=== PATIENT | male | born 1955 | race African-American/Black ===

== ENCOUNTER 2022-07-29 20:14 | Emergency (ER) | payer MEDICAID ==
[~2022-07-29] VITALS: Ht 177.8 cm; Wt 94.9 kg
[~2022-07-29 20:14] MED LIST: FLUT1DIS IH
[2022-07-29 20:32] VITALS: BP 179/104
== END 2022-07-30 00:23 | disposition left against medical advice (07) ==
LOC: ER 20:14
DX: Z53.21 Procedure and treatment not carried out due to patient leaving prior to being seen by health care provider (principal)

== ENCOUNTER 2024-03-04 17:34 | Emergency (ER) | payer BC, MEDICAID ==
[~2024-03-04] VITALS: Ht 172.7 cm; Wt 106.0 kg
[~2024-03-04 17:34] MED LIST changes: +AMLO5TAB88 PO; +ASPI-1160 PO; +ATOR20TA PO; +HYDR100T26 PO; +ISOS30TA91 PO; +METO25TA6 PO
[2024-03-04 17:36] VITALS: BP 143/63
[2024-03-04] MEDS: DEXAMETHASONE 4MG/ML 1ML VIAL IM ONE (18:13)
[2024-03-04] MEDS: IPRATROPIUM/ALBUTEROL 0.5-3(2.5)MG/3ML NEB HHN ONE (18:21)
[2024-03-04 18:22] VITALS: PULSE 74; RESP 20; O2SAT 94
[2024-03-04] MEDS: ALBUTEROL (0.083%) 2.5MG/3ML NEB HHN ONE (18:22)
[2024-03-04 18:58] LABS: BASOPHILS % 0.7 % (0.0-2.0); EOSINOPHILS % 6.4 % (0.0-5.0); HEMATOCRIT. 34.1 % (42.0-52.0); HEMOGLOBIN. 11.2 g/dL (14.0-18.0); LYMPHOCYTES % 31.3 % (20.0-50.0); MEAN CORPUSCULAR HEMOGLOBIN 32.4 pg (28.0-32.0); MEAN CORPUSCULAR HGB CONC 32.9 g/dL (31.0-37.0); MEAN CORPUSCULAR VOLUME 98.4 fL (80.0-94.0); MEAN PLATELET VOLUME 8.6 fl (7.4-10.4); MONOCYTES % 7.7 % (2.0-8.0); NEUTROPHILS % 53.9 % (40.0-76.0); PLATELET 159 x1000/uL (130-400); RED BLOOD CELL COUNT 3.47 mill/uL (4.7-6.1); RED CELL DISTRIBUTION WIDTH 13.2 % (11.6-14.6); WHITE BLOOD COUNT 4.3 x1000/uL (4.5-11.0)
[2024-03-04 19:06] LABS: CHLORIDE 108 mEq/L (98-107); POTASSIUM 3.7 mEq/L (3.5-5.1); SODIUM 141 mEq/L (136-145)
[2024-03-04 19:07] LABS: CALCIUM 9.2 mg/dL (8.7-10.4); CARBON DIOXIDE 27 mEq/L (21-32)
[2024-03-04 19:12] LABS: CREATININE 0.9 mg/dL (0.6-1.3); GLUCOSE 84 mg/dL (70-105); UREA NITROGEN BLOOD 9 mg/dL (9-23)
[2024-03-04 19:15] LABS: TROPONIN I HIGH SENSITIVITY 72 ng/L (3.0-53)
[2024-03-04] MEDS ORDERED: FLUT1DIS3 INH (19:38)
[2024-03-04] MEDS ORDERED: ALBU6.7H15 INH (19:38)
[2024-03-04] MEDS ORDERED: P50 MT (19:40)
[2024-03-04 20:07] VITALS: PULSE 76; RESP 20; TEMP 98.3
== END 2024-03-04 20:08 | disposition home or self-care (01) ==
LOC: ER 17:34
DX: J45.901 Unspecified asthma with (acute) exacerbation (principal); I10 Essential (primary) hypertension; Z79.899 Other long term (current) drug therapy
CPT/HCPCS: 99285; 71045; 80048; 85025; 84484; 36415; 94640; 93005; 96372; J1100

== ENCOUNTER 2024-05-03 08:07 | Emergency (ER) | payer BC, MEDICAID ==
[~2024-05-03] VITALS: Ht 177.8 cm; Wt 93.0 kg
[~2024-05-03 08:07] MED LIST changes: +ALBU6.7H15 INH; +FLUT1DIS3 INH; +HYDR100T11 PO; -HYDR100T26 PO; +P50 MT
[2024-05-03 08:19] VITALS: TEMP 98.3
[2024-05-03 09:04] VITALS: PULSE 80; RESP 21; O2SAT 94
[2024-05-03] MEDS: IPRATROPIUM BROMIDE (0.02%) 0.5MG/2.5ML NEB HHN STA (09:04)
[2024-05-03] MEDS: ALBUTEROL (0.083%) 2.5MG/3ML NEB HHN SCH (09:04)
[2024-05-03] MEDS ORDERED: DEXAMETHASONE 1MG TABLET PO ONE (11:15)
[2024-05-03 12:01] VITALS: BP 119/69; PULSE 87; RESP 18; O2SAT 93
[2024-05-03] MEDS: DEXAMETHASONE 10 MG/ML VIAL PO SCH (12:01)
== END 2024-05-03 11:13 | disposition home or self-care (01) ==
LOC: ER 08:30
DX: J45.901 Unspecified asthma with (acute) exacerbation (principal); I10 Essential (primary) hypertension; Z88.0 Allergy status to penicillin; Z79.899 Other long term (current) drug therapy; Z98.890 Other specified postprocedural states
CPT/HCPCS: 99291; 71045; 94640; J1100; J8540

== ENCOUNTER 2024-05-15 09:37 | Emergency (ER) | payer BC, MEDICAID ==
[~2024-05-15] VITALS: Ht 177.8 cm; Wt 93.0 kg
[2024-05-15 09:51] VITALS: O2SAT 97
[2024-05-15 10:04] VITALS: BP 117/78; TEMP 98.6; O2SAT 96
[2024-05-15] MEDS ORDERED: PREDNISONE 20MG TABLET PO STA (10:12)
[2024-05-15 10:39] VITALS: PULSE 96; RESP 18
[2024-05-15] MEDS: ALBUTEROL (0.083%) 2.5MG/3ML NEB HHN STA (10:39)
[2024-05-15] MEDS: IPRATROPIUM BROMIDE (0.02%) 0.5MG/2.5ML NEB HHN STA (10:39)
[2024-05-15] MEDS ORDERED: P20 MT (11:41)
[2024-05-15] MEDS ORDERED: PREDNISONE 20MG TABLET PO NR (12:00)
== END 2024-05-15 12:09 | disposition home or self-care (01) ==
LOC: ER 09:37
DX: J45.901 Unspecified asthma with (acute) exacerbation (principal); I10 Essential (primary) hypertension; F19.90 Other psychoactive substance use, unspecified, uncomplicated; Z88.0 Allergy status to penicillin; Z79.899 Other long term (current) drug therapy
CPT/HCPCS: 99283; 94640; J7512

== ENCOUNTER 2024-05-31 09:17 | Emergency (ER) | payer BC, MEDICAID ==
[~2024-05-31] VITALS: Ht 177.8 cm; Wt 92.0 kg
[~2024-05-31 09:17] MED LIST changes: +P20 MT
[2024-05-31 09:22] VITALS: O2SAT 98
[2024-05-31 09:26] VITALS: BP 145/86; TEMP 98.6
[2024-05-31] MEDS: PREDNISONE 20MG TABLET PO STA (11:40)
[2024-05-31 11:45] VITALS: PULSE 77; RESP 18; O2SAT 96
[2024-05-31] MEDS: IPRATROPIUM BROMIDE (0.02%) 0.5MG/2.5ML NEB HHN STA (11:45)
[2024-05-31] MEDS: ALBUTEROL (0.083%) 2.5MG/3ML NEB HHN STA (11:45)
[2024-05-31] MEDS ORDERED: P20 MT ×2 (12:56→13:04)
== END 2024-05-31 13:28 | disposition home or self-care (01) ==
LOC: ER 09:17
DX: J45.901 Unspecified asthma with (acute) exacerbation (principal); I10 Essential (primary) hypertension; Z79.899 Other long term (current) drug therapy; Z88.0 Allergy status to penicillin; Z98.890 Other specified postprocedural states
CPT/HCPCS: 99283; 71045; 94640; J7512

== ENCOUNTER 2024-06-06 21:32 | Emergency (ER) | payer BC, MEDICAID ==
[~2024-06-06] VITALS: Ht 177.8 cm; Wt 92.0 kg
[2024-06-06 21:58] VITALS: BP 125/85; TEMP 98.3
[2024-06-06] MEDS ORDERED: IPRATROPIUM/ALBUTEROL 0.5-3(2.5)MG/3ML NEB HHN ONE (22:00)
[2024-06-06] MEDS: DEXAMETHASONE 10 MG/ML VIAL IM ONE (23:15)
[2024-06-06 23:55] VITALS: PULSE 76; RESP 20; O2SAT 95
[2024-06-06] MEDS: IPRATROPIUM/ALBUTEROL 0.5-3(2.5)MG/3ML NEB HHN NR (23:55)
[2024-06-07 00:56] VITALS: PULSE 73; RESP 18; O2SAT 98
[2024-06-07] MEDS: IPRATROPIUM/ALBUTEROL 0.5-3(2.5)MG/3ML NEB HHN ONE (00:56)
[2024-06-07] MEDS ORDERED: P20 MT (01:04)
== END 2024-06-07 01:23 | disposition home or self-care (01) ==
LOC: ER 21:32
DX: J45.901 Unspecified asthma with (acute) exacerbation (principal); I10 Essential (primary) hypertension; Z79.899 Other long term (current) drug therapy; Z79.82 Long term (current) use of aspirin; Z79.51 Long term (current) use of inhaled steroids; Z88.0 Allergy status to penicillin
CPT/HCPCS: 99283; 71045; 94640; 96372; J1100

== ENCOUNTER 2024-07-02 11:06 | Emergency (ER) | payer BC, MEDICAID ==
[~2024-07-02] VITALS: Ht 177.8 cm; Wt 95.0 kg
[2024-07-02 11:25] VITALS: BP 142/87; TEMP 36.83628; O2SAT 95
[2024-07-02 12:45] VITALS: PULSE 88; RESP 22; O2SAT 95
[2024-07-02] MEDS: IPRATROPIUM/ALBUTEROL 0.5-3(2.5)MG/3ML NEB HHN ONE (12:45)
[2024-07-02] MEDS: ALBUTEROL (0.083%) 2.5MG/3ML NEB HHN ONE ×2 (12:45→13:22)
[2024-07-02] MEDS: DEXAMETHASONE 10 MG/ML VIAL IM ONE (13:22)
[2024-07-02 13:50] VITALS: PULSE 93; RESP 22; O2SAT 98
[2024-07-02] MEDS ORDERED: ALBU90AE INH (14:03)
== END 2024-07-02 14:21 | disposition home or self-care (01) ==
LOC: ER 11:20
DX: J45.901 Unspecified asthma with (acute) exacerbation (principal); I10 Essential (primary) hypertension; Z79.899 Other long term (current) drug therapy; Z79.82 Long term (current) use of aspirin; Z79.51 Long term (current) use of inhaled steroids; Z88.0 Allergy status to penicillin
CPT/HCPCS: 71045; 94640; 99291

== ENCOUNTER 2024-07-25 08:46 | Emergency (ER) | payer BC, MEDICAID ==
[~2024-07-25] VITALS: Ht 180.3 cm; Wt 88.0 kg
[~2024-07-25 08:46] MED LIST changes: +ALBU90AE INH
[2024-07-25 08:50] VITALS: O2SAT 95
[2024-07-25 09:02] VITALS: BP 142/78; TEMP 98.5
[2024-07-25 09:22] LABS: CHLORIDE 107 mEq/L (98-107); POTASSIUM 4.7 mEq/L (3.5-5.1); SODIUM 139 mEq/L (136-145)
[2024-07-25 09:23] LABS: CALCIUM 9.7 mg/dL (8.7-10.4); CARBON DIOXIDE 27 mEq/L (21-32); HEMATOCRIT. 35.8 % (42.0-52.0); MEAN CORPUSCULAR HGB CONC 33.5 g/dL (31.0-37.0); MEAN CORPUSCULAR VOLUME 95.7 fL (80.0-94.0); MEAN PLATELET VOLUME 9.3 fl (7.4-10.4); PLATELET 160 x1000/uL (130-400); RED BLOOD CELL COUNT 3.74 mill/uL (4.7-6.1); WHITE BLOOD COUNT 8.4 x1000/uL (4.5-11.0)
[2024-07-25 09:26] LABS: DIFFERENTIAL COMMENT 1
[2024-07-25 09:28] LABS: CREATININE 1.1 mg/dL (0.6-1.3); GLUCOSE 186 mg/dL (70-105); UREA NITROGEN BLOOD 10 mg/dL (9-23)
[2024-07-25 10:00] VITALS: PULSE 84; RESP 20; O2SAT 93
[2024-07-25] MEDS: ALBUTEROL (0.083%) 2.5MG/3ML NEB HHN ONE (10:07)
[2024-07-25] MEDS: PREDNISONE 20MG TABLET PO ONE (10:07)
[2024-07-25 11:00] VITALS: PULSE 80; RESP 20
[2024-07-25] MEDS: IPRATROPIUM/ALBUTEROL 0.5-3(2.5)MG/3ML NEB HHN ONE (11:16)
[2024-07-25 11:40] LABS: PLATELET ESTIMATE NORMAL
[2024-07-25 12:44] LABS: TROPONIN I HIGH SENSITIVITY 161 ng/L (3.0-53)
[2024-07-25] MEDS ORDERED: P50 MT (13:29)
[2024-07-25 17:05] LABS: TROPONIN I HIGH SENSITIVITY 158 ng/L (3.0-53)
== END 2024-07-25 13:40 | disposition home or self-care (01) ==
LOC: ER 08:46
DX: J45.901 Unspecified asthma with (acute) exacerbation (principal); R79.89 Other specified abnormal findings of blood chemistry; I10 Essential (primary) hypertension; Z88.0 Allergy status to penicillin; Z79.899 Other long term (current) drug therapy; Z79.82 Long term (current) use of aspirin; Z79.51 Long term (current) use of inhaled steroids
CPT/HCPCS: 99291; 80048; 85025; 84484; 36415; 71045; 94640; 93005; J7512

== ENCOUNTER 2025-02-05 16:55 | Emergency (ER) | payer BC, MEDICAID ==
[~2025-02-05] VITALS: Ht 182.9 cm; Wt 84.0 kg
[2025-02-05 17:00] VITALS: O2SAT 97
[2025-02-05 17:30] LABS: BASOPHILS % 0.3 % (0.0-2.0); EOSINOPHILS % 0.5 % (0.0-5.0); HEMATOCRIT. 29.6 % (42.0-52.0); HEMOGLOBIN. 9.9 g/dL (14.0-18.0); LYMPHOCYTES % 12.5 % (20.0-50.0); MEAN CORPUSCULAR HGB CONC 33.5 g/dL (31.0-37.0); MEAN CORPUSCULAR VOLUME 86.4 fL (80.0-94.0); MEAN PLATELET VOLUME 8.8 fl (7.4-10.4); MONOCYTES % 7.6 % (2.0-8.0); NEUTROPHILS % 79.1 % (40.0-76.0); PLATELET 178 x1000/uL (130-400); RED BLOOD CELL COUNT 3.42 mill/uL (4.7-6.1); RED CELL DISTRIBUTION WIDTH 16.7 % (11.6-14.6)
[2025-02-05 17:37] LABS: CHLORIDE 106 mEq/L (98-107); POTASSIUM 3.7 mEq/L (3.5-5.1); SODIUM 138 mEq/L (136-145)
[2025-02-05] MEDS: KETOROLAC 30MG/ML VIAL IV STA (17:37)
[2025-02-05 17:38] LABS: CARBON DIOXIDE 25 mEq/L (21-32)
[2025-02-05] MEDS: ONDANSETRON HCL 4MG/2ML INJ IV STA (17:38)
[2025-02-05 17:39] LABS: CALCIUM 9.1 mg/dL (8.7-10.4); INR 1.1; PROTHROMBIN TIME 12.1 sec (9.6-11.0)
[2025-02-05] MEDS: SODIUM CHLORIDE 0.9% 1,000 ML IV ONE (17:42)
[2025-02-05 17:43] LABS: GLUCOSE 124 mg/dL (70-105); UREA NITROGEN BLOOD 9 mg/dL (9-23)
[2025-02-05 17:44] LABS: ETHANOL BLOOD < 10 mg/dL (<10)
[2025-02-05 17:45] LABS: TROPONIN I HIGH SENSITIVITY 38 ng/L (3.0-53)
[2025-02-05 20:10] VITALS: TEMP 36.6
[2025-02-05] MEDS ORDERED: MAG-55 MT (20:43)
[2025-02-05] MEDS ORDERED: FAMO-135 MT (20:43)
[2025-02-05 21:01] VITALS: BP 118/52; PULSE 81; RESP 18; O2SAT 98
[2025-02-05] MEDS ORDERED: IOHEXOL-300 100 ML BOTTLE ONE (23:05)
== END 2025-02-05 21:04 | disposition home or self-care (01) ==
LOC: ER 16:55
DX: K29.70 Gastritis, unspecified, without bleeding (principal); E78.00 Pure hypercholesterolemia, unspecified; I10 Essential (primary) hypertension; J45.909 Unspecified asthma, uncomplicated; Z90.49 Acquired absence of other specified parts of digestive tract; Z79.82 Long term (current) use of aspirin; Z79.899 Other long term (current) drug therapy; Z79.51 Long term (current) use of inhaled steroids; Z88.0 Allergy status to penicillin
CPT/HCPCS: 80048; 80320; 83690; 85025; 85610; 84484; 36415; 74177; 96361; 96374; 96375; 99285; Q9967; J1885; J2405; J7030; A4606; G0480